=== PATIENT | male | born 1980 | race Caucasian/White ===

== ENCOUNTER 2019-02-22 20:16 | Inpatient (IN) | payer MEDICAID ==
[~2019-02-22] VITALS: Ht 172.7 cm; Wt 69.1 kg
[~2019-02-22 20:16] MED LIST: ACET-141 GTB; ACET325T33 GTB; ACET325T45 GTB; AMIN30LI GTB; ASC500 GTB; Amikacin Iv Per Pharmacy XX; BALS60OI TOP; BISA10SU55 RC; CHLO473M4 MM; DOCU-144 GTB; HYDR-4011 GTB; KEP100S GTB; LACT1CAP4 GTB; LEVA0.6313 HHN; LEVA0.6313 INHALATION; LEVE500S8 GTB; LEVO500T10 GTB; LEVO500T48 GTB; LORA-441 GTB; MAGN400O19 GTB; METO-335 GTB; METO-448 GTB; MULT-105 GTB; NA P133E39 RC; NAPH30DR3 BOTH EYES; SILV20CR12 TOP; ZINC220C5 GTB; ZINC220T3 GTB; [UNRECOGNIZED DRUG - CODE] HHN
[2019-02-22] MEDS ORDERED: CEFEPIME 2GM/50 ML (PMX) 50 ML IVPB STA (20:19)
[2019-02-22] MEDS ORDERED: SODIUM CHLORIDE 0.9% 1L BAG IV* STA (20:23)
[2019-02-22] MEDS ORDERED: VANCOMYCIN 1 GM (PMX) 250 ML IVPB ONE (20:30)
[2019-02-22] MEDS ORDERED: ALBUTEROL HFA 8 GM INHALER INH PRN (23:00)
[2019-02-22] MEDS ORDERED: IPRATROPIUM (HFA) 12.9 GM INHALER INH PRN (23:00)
[2019-02-22] MEDS ORDERED: ONDANSETRON 4 MG INJ IV PRN (23:00)
[2019-02-22] MEDS: LEVETIRACETAM (100 MG/ML) 5ML CUP GTB SCH (23:42)
[2019-02-22] MEDS: DEXTROSE 5%-0.45% NACL 1,000 ML IV SCH (23:43)
[2019-02-23] VITALS (32 sets, daily range): BP systolic 101–131; BP diastolic 69–98; PULSE 100–150; RESP 18–38; Ht 172.7 cm; Wt 69.1 kg
[2019-02-23] MEDS ORDERED: PROPOFOL 100 ML ONE (03:06)
[2019-02-23] MEDS ORDERED: PHENYLephrine 20MG IN 250 ML 250 ML IV SCH (03:30)
[2019-02-23] MEDS ORDERED: SOD CHLORIDE 0.9% 1,000 ML IV ONE (03:30)
[2019-02-23] MEDS ORDERED: LORAZEPAM 2 MG INJ IV ONE (03:30)
[2019-02-23] MEDS: PROPOFOL 100 ML IV SCH ×2 (03:32→15:30)
[2019-02-23] MEDS: PANTOPRAZOLE 40 MG INJ IV SCH (05:15)
[2019-02-23] MEDS ORDERED: NON-FORMULARY/PATIENT OWN MED (Amino Acids/Protein Hydrolys (Pro-Stat Liquid) 30 ML) GTB SCH (09:00)
[2019-02-23] MEDS ORDERED: MULTIVITAMINS 30 ML CUP PO SCH (09:00)
[2019-02-23] MEDS: DEXTROSE 5%-0.45% NACL 1,000 ML IV SCH ×2 (09:23→17:39)
[2019-02-23] MEDS: ZINC SULFATE 220 MG CAP GTB SCH (09:23)
[2019-02-23] MEDS: HEPARIN 5,000 UNIT/1 ML VIAL SC SCH ×2 (09:24→20:54)
[2019-02-23] MEDS: SILVER SULFADIAZINE 1% 25 GM CR TOP SCH (10:16)
[2019-02-23] MEDS: LEVETIRACETAM (100 MG/ML) 5ML CUP GTB SCH ×2 (10:31→22:55)
[2019-02-23] MEDS: morphine 2 MG INJ IV PRN ×2 (12:36→23:40)
[2019-02-23] MEDS: LORAZEPAM 2 MG INJ IV PRN (17:39)
[2019-02-23] MEDS: DOCUSATE SODIUM 100 MG CAP PO SCH (20:55)
[2019-02-24] VITALS (36 sets, daily range): BP systolic 93–120; BP diastolic 66–84; PULSE 99–122; RESP 8–27
[2019-02-24] MEDS: PROPOFOL 100 ML IV SCH ×2 (03:30→14:59)
[2019-02-24] MEDS: DEXTROSE 5%-0.45% NACL 1,000 ML IV SCH ×2 (04:01→14:41)
[2019-02-24] MEDS: PANTOPRAZOLE 40 MG INJ IV SCH (06:00)
[2019-02-24] MEDS: LORAZEPAM 2 MG INJ IV PRN ×2 (06:34→12:44)
[2019-02-24] MEDS: morphine 2 MG INJ IV PRN (07:04)
[2019-02-24] MEDS: MULTIVITAMINS 30 ML CUP GTB SCH (09:30)
[2019-02-24] MEDS: SILVER SULFADIAZINE 1% 25 GM CR TOP SCH (09:30)
[2019-02-24] MEDS: HEPARIN 5,000 UNIT/1 ML VIAL SC SCH ×2 (09:33→20:44)
[2019-02-24] MEDS: ZINC SULFATE 220 MG CAP GTB SCH (09:33)
[2019-02-24] MEDS: LEVETIRACETAM (100 MG/ML) 5ML CUP GTB SCH ×2 (11:27→22:31)
[2019-02-24] MEDS: DOCUSATE SODIUM 100 MG CAP PO SCH (20:35)
[2019-02-25] VITALS (18 sets, daily range): BP systolic 103–124; BP diastolic 68–81; PULSE 102–123; RESP 18–27
[2019-02-25] MEDS: DEXTROSE 5%-0.45% NACL 1,000 ML IV SCH ×2 (01:35→11:49)
[2019-02-25] MEDS: LORAZEPAM 2 MG INJ IV PRN ×2 (05:25→15:22)
[2019-02-25] MEDS: LANSOPRAZOLE (SOLTAB) 30 MG TAB GTB SCH (06:24)
[2019-02-25] MEDS: morphine 2 MG INJ IV PRN (07:18)
[2019-02-25] MEDS: MULTIVITAMINS 30 ML CUP GTB SCH (08:43)
[2019-02-25] MEDS: ZINC SULFATE 220 MG CAP GTB SCH (08:44)
[2019-02-25] MEDS: SILVER SULFADIAZINE 1% 25 GM CR TOP SCH (08:45)
[2019-02-25] MEDS: HEPARIN 5,000 UNIT/1 ML VIAL SC SCH ×2 (08:45→21:27)
[2019-02-25] MEDS ORDERED: VANCOMYCIN IV PER PHARMACY XX SCH (10:30)
[2019-02-25] MEDS: LEVETIRACETAM (100 MG/ML) 5ML CUP GTB SCH ×2 (11:49→23:11)
[2019-02-25] MEDS: CEFEPIME 1GM/50 ML (PMX) 50 ML IVPB SCH ×2 (11:49→21:20)
[2019-02-25] MEDS ORDERED: SOD CHLORIDE 0.9% 100 ML ONE (13:33)
[2019-02-25] MEDS ORDERED: IOHEXOL 100 ML ONE (13:33)
[2019-02-25] MEDS: DOXYCYCLINE 100 MG TAB GTB SCH ×2 (14:28→23:11)
[2019-02-25] MEDS: DOCUSATE SODIUM 100 MG CAP PO SCH (21:20)
[2019-02-26] VITALS (18 sets, daily range): BP systolic 109–123; BP diastolic 71–81; PULSE 92–119; RESP 16–29
[2019-02-26] MEDS: LANSOPRAZOLE (SOLTAB) 30 MG TAB GTB SCH (05:39)
[2019-02-26] MEDS: MULTIVITAMINS 30 ML CUP GTB SCH (09:13)
[2019-02-26] MEDS: CEFEPIME 1GM/50 ML (PMX) 50 ML IVPB SCH ×2 (09:13→21:35)
[2019-02-26] MEDS: DOXYCYCLINE 100 MG TAB GTB SCH ×2 (09:13→21:34)
[2019-02-26] MEDS: ZINC SULFATE 220 MG CAP GTB SCH (09:13)
[2019-02-26] MEDS: HEPARIN 5,000 UNIT/1 ML VIAL SC SCH (09:16)
[2019-02-26] MEDS: SILVER SULFADIAZINE 1% 25 GM CR TOP SCH (09:51)
[2019-02-26] MEDS: LEVETIRACETAM (100 MG/ML) 5ML CUP GTB SCH ×2 (10:47→23:41)
[2019-02-26] MEDS ORDERED: morphine (ER) 15 MG TAB PO SCH (12:00)
[2019-02-26] MEDS ORDERED: morphine LIQ (10 MG/5 ML) CUP PO SCH (12:00)
[2019-02-26] MEDS: FUROSEMIDE 20 MG INJ IV SCH ×2 (12:24→17:20)
[2019-02-26] MEDS: morphine LIQ (10 MG/5 ML) CUP GTB SCH ×2 (13:19→21:35)
[2019-02-26] MEDS: DOCUSATE SODIUM 100 MG CAP PO SCH (21:35)
[2019-02-27] VITALS (18 sets, daily range): BP systolic 102–132; BP diastolic 65–84; PULSE 93–110; RESP 16–25
[2019-02-27] MEDS: LANSOPRAZOLE (SOLTAB) 30 MG TAB GTB SCH (06:03)
[2019-02-27] MEDS: morphine LIQ (10 MG/5 ML) CUP GTB SCH ×3 (06:03→22:23)
[2019-02-27] MEDS: FUROSEMIDE 20 MG INJ IV SCH ×2 (06:03→22:21)
[2019-02-27] MEDS ORDERED: LEVOFLOXACIN 500 MG TAB PO ONE (08:00)
[2019-02-27] MEDS: ZINC SULFATE 220 MG CAP GTB SCH (09:34)
[2019-02-27] MEDS: DOXYCYCLINE 100 MG TAB GTB SCH ×2 (09:34→22:21)
[2019-02-27] MEDS: SILVER SULFADIAZINE 1% 25 GM CR TOP SCH (09:34)
[2019-02-27] MEDS: MULTIVITAMINS 30 ML CUP GTB SCH (09:34)
[2019-02-27] MEDS: LEVETIRACETAM (100 MG/ML) 5ML CUP GTB SCH (11:44)
[2019-02-27] MEDS ORDERED: DOCUSATE SODIUM 10 MG/ML (10ML CUP) GTB SCH (21:30)
[2019-02-27] MEDS: NYSTATIN 30 GM POWDER BTL TOP SCH (22:24)
[2019-02-27] MEDS: BALSAM PERU/CASTOR OIL 60 GM TUBE TOP SCH (22:24)
[2019-02-28] VITALS (13 sets, daily range): BP systolic 91–118; BP diastolic 60–84; PULSE 93–119; RESP 16–21
[2019-02-28] MEDS: LEVETIRACETAM (100 MG/ML) 5ML CUP GTB SCH ×2 (00:08→11:14)
[2019-02-28] MEDS: LANSOPRAZOLE (SOLTAB) 30 MG TAB GTB SCH (05:54)
[2019-02-28] MEDS: morphine LIQ (10 MG/5 ML) CUP GTB SCH ×2 (05:54→13:38)
[2019-02-28] MEDS ORDERED: LEVOFLOXACIN 500 MG TAB GTB SCH (06:00)
[2019-02-28] MEDS: MULTIVITAMINS 30 ML CUP GTB SCH (08:15)
[2019-02-28] MEDS: DOXYCYCLINE 100 MG TAB GTB SCH (08:15)
[2019-02-28] MEDS: ZINC SULFATE 220 MG CAP GTB SCH (08:15)
[2019-02-28] MEDS: SILVER SULFADIAZINE 1% 25 GM CR TOP SCH (08:16)
[2019-02-28] MEDS: BALSAM PERU/CASTOR OIL 60 GM TUBE TOP SCH (08:16)
[2019-02-28] MEDS: NYSTATIN 30 GM POWDER BTL TOP SCH (08:16)
[2019-02-28] MEDS ORDERED: DOCUSATE SODIUM 10 MG/ML (10ML CUP) GTB SCH (21:00)
== END 2019-02-28 18:00 | DRG 870 ==
LOC: E/R 20:16 → ICU 21:44 → EDBEDREQSVC 23:35 → 6WM 02-24 23:48
PROVIDERS: ADMIT Internal Medicine; ATTEND Internal Medicine
PROC: 5A1955Z Respiratory Ventilation, Greater than 96 Consecutive Hours (ICD-10-PCS; principal; 2019-02-22)
PROC: 30233N1 Transfusion of Nonautologous Red Blood Cells into Peripheral Vein, Percutaneous Approach (ICD-10-PCS; 2019-02-27)
DX: A41.9 Sepsis, unspecified organism (principal); J18.9 Pneumonia, unspecified organism; J96.21 Acute and chronic respiratory failure with hypoxia; R40.3 Persistent vegetative state; Z99.11 Dependence on respirator [ventilator] status; G93.49 Other encephalopathy; R56.1 Post traumatic seizures; E87.1 Hypo-osmolality and hyponatremia; R00.0 Tachycardia, unspecified; Z87.820 Personal history of traumatic brain injury; Z93.0 Tracheostomy status; Z66 Do not resuscitate; Z93.1 Gastrostomy status; R13.19 Other dysphagia; Z98.2 Presence of cerebrospinal fluid drainage device; S22.39XD Fracture of one rib, unspecified side, subsequent encounter for fracture with routine healing; S42.101D Fracture of unspecified part of scapula, right shoulder, subsequent encounter for fracture with routine healing; D64.9 Anemia, unspecified
CPT/HCPCS: 36415; 36430; 36573; 36600; 71045; 71275; 80048; 80053; 80076; 81001; 82550; 82553; 82803; 83036; 83605; 83735; 84100; 84145; 84484; 85025; 85610; 85730; 86850; 86900; 86901; 86920; 87070; 87081; 87086; 89220; 93005; 93971; 94002; 94003; 96374; C9113; J0692; J1644; J1940; J2060; J2270; J3370; J7030; J7042; P9016; Q9967